=== PATIENT | male | born 1985 | race Caucasian/White ===

== ENCOUNTER 2023-08-02 16:38 | Emergency (ER) | payer SELFPAY ==
[2023-08-02 16:50] VITALS: BP 141/95; PULSE 92; RESP 14; TEMP 36.6; O2SAT 97; BMI 32.1
--- NOTE | 2023-08-02 17:35 | ED.WOUNDLAC ---
HPI - Wound/Laceration General Date Seen: 08/02/23 Chief Complaint: Laceration/Wound Stated Complaint: Laceration L leg Time Seen by Provider: 08/02/23 16:55 Source: patient Mode of arrival: ambulatory Limitations: no limitations History of Present Illness HPI narrative: Patient is a 38-year-old male presents emergency department for laceration to his left leg. He says he was at work when he was walking and cut the lawn a transmission. Sister transmission was 30. His last tetanus shot was 2013. Did has some pain while walking and the pain resolved when he sat down. States the pain is pretty minimal this time other than around the wound. Denies fevers, chills, numbness, weakness. No other injuries noted. Related Data Home Medications Medication Instructions Recorded Confirmed No Known Home Medications 08/02/23 08/02/23 Allergies Allergy/AdvReac Type Severity Reaction Status Date / Time No Known Drug Allergies Allergy Verified 08/02/23 16:50 Review of Systems Narrative: Negative unless stated in HPI PFSH PFSH Social History Smoking Status: Current every day smoker How often do you have a drink containing alcohol: monthly or less AUDIT-C Alcohol total score: 1 Non-prescribed substance use: marijuana (any form) Exam Narrative: Exam Narrative: Const: Well-nourished, Well-developed, in mild distress Eyes: PERRL, no conjunctival injection, and symmetrical lids HENT: Atraumatic external nose and ears. Moist mucous membranes. MSK:Extremities w/o deformity, Normal Active ROM Skin: Warm, Dry. 2 cm laceration lower left leg laterally Neuro: Normal Muscle tone, No focal neurological deficits. Psych: Awake, Alert, & Oriented x3. Appropriate mood and affect. Const: Vital Signs, click to edit/add: Vital Signs - 24 hr 08/02/23 16:50 Temperature 97.9 F Pulse Rate [Pulse Oximeter] 92 Respiratory Rate 14 Blood Pressure [Le ft Upper Arm] 141/95 H Pulse Oximetry 97 Oxygen Delivery Me thod Room Air Course Vital Signs Vital signs: Initial Vital Signs Temperature 97.9 F 08/02/23 16:50 Temperature Source Temporal Artery Scan 08/02/23 16:50 Pulse Rate 92 08/02/23 16:50 Pulse Rhythm Regular 08/02/23 16:50 Respiratory Rate 14 08/02/23 16:50 Blood Pressure 141/95 H 08/02/23 16:50 Blood Pressure Mean 110 H 08/02/23 16:50 Blood Pressure Position Sitting 08/02/23 16:50 Pulse Oximetry 97 08/02/23 16:50 Oxygen Delivery Method Room Air 08/02/23 16:50 Vital Signs Temperature 97.9 F 08/02/23 16:50 Pulse Rate 92 08/02/23 16:50 Respiratory Rate 14 08/02/23 16:50 Blood Pressure 141/95 H 08/02/23 16:50 Pulse Oximetry 97 08/02/23 16:50 Oxygen Delivery Method Room Air 08/02/23 16:50 Temperature 97.9 F 08/02/23 16:50 Pulse Rate 92 08/02/23 16:50 Respiratory Rate 14 08/02/23 16:50 Blood Pressure 141/95 H 08/02/23 16:50 Pulse Oximetry 97 08/02/23 16:50 Oxygen Delivery Method Room Air 08/02/23 16:50 MDM - Wound/Laceration MDM Narrative Medical decision making narrative: Patient is a 38-year-old male presenting for laceration to his left lower leg. His tetanus has been updated. Imaging is not suggestive this time he has full movement of the leg. I do not believe any muscles have been damaged. Eight sutures were placed. See procedure note. She is otherwise doing well in giving discharged home. He is agreeable this plan. Antibiotics are not necessary at this time Discharge Plan Discharge Clinical Impression: Laceration Patient Disposition: Home, Self-Care Condition: Stable Instructions: Laceration (DC) Additional Instructions: Follow-up with your primary care provider/urgent care/emergency department in the next 7 days to have the 8 sutures removed. For next 6 months, once sutures are removed, whenever you goes outside put a tab of sunscreen over the laceration site to improve scar appearance. Topical antibiotics are not necessary at this time. Patient can shower but do not submerge the laceration until sutures are removed Prescriptions: No Action No Known Home Medications Follow Up/Referrals: Provider,Not a Local [Primary Care Provider] - Stand Alone Forms: [employer] Info Instructions Procedures Laceration Left lower leg: Name of person performing procedure: Eric Mena Site: lower extremity Side (If applicable): left Size (cm): 2 Description: linear and clean Depth: simple, single layer Local Anesthetic: lidocaine 1% Amount of anesthesia used (mL): 6 Pre-repair: wound explored, irrigated extensively and deep structures intact Skin layer closed with: nylon Size (cm): 4-0 Number of sutures: 8 Technique: simple, interrupted
== END 2023-08-02 18:52 | disposition home or self-care (01) ==
PROVIDERS: Emergency Provider Student in an Organized Health Care Education/Training Program
DX: S81.812A Laceration without foreign body, left lower leg, initial encounter (principal); W26.9XXA Contact with unspecified sharp object(s), initial encounter
CPT/HCPCS: 12001; 90471; 90714; 99283

== ENCOUNTER 2024-11-09 14:56 | Emergency (ER) | payer OTHER, SELFPAY ==
[2024-11-09 15:00] VITALS: BP 156/80; PULSE 112; RESP 16; TEMP 36.2; O2SAT 94; BMI 30.8
[2024-11-09] MEDS: LIDOCAINE 1 % PF 30 ML INJECTION (15:25)
--- NOTE | 2024-11-09 15:36 | ED.WOUNDLAC ---
HPI - Wound/Laceration General Chief Complaint: Laceration/Wound Stated Complaint: Cut rt hand Time Seen by Provider: 11/09/24 15:04 History of Present Illness HPI narrative: This 39-year-old male comes in with an injury to his right hand. 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 The chain involved in this pinched his right hand causing a laceration. He has a laceration on the ulnar aspect of his right hand overlying the distal and lateral portion of his 5th metatarsal. His tetanus status is up-to-date. He does not report any other injury. Related Data Home Medications ?Medication ?Instructions ?Recorded ?Confirmed No Known Home Medications 08/02/23 08/02/23 Allergies Allergy/AdvReac Type Severity Reaction Status Date / Time No Known Drug Allergies Allergy Verified 08/02/23 16:50 Review of Systems Status of ROS: Reports: 10 or more systems reviewed and unremarkable except as noted in History and below Narrative: Constitutional: No fevers, no weight gain or loss. Eyes: No discharge. No vision changes. HENT: No congestion, no sore throat, no ear pain. Cardiovascular: No chest pain, no palpitations. Respiratory: No shortness of breath, no wheezes, no cough. Gastrointestinal: No abdominal pain, no vomiting, no diarrhea. Genitourinary: No dysuria, no hematuria. Musculoskeletal: Normal range of motion. Skin: No rashes, no pruritis. Neurological: No dizziness, weakness, sensory change, speech change. Endo/Heme/Allergies: No bruising or bleeding. No polydipsia. Pysch: no suicidality, no anxiety, no insomnia. All other systems reviewed and are negative. [facility] Social History Smoking Status: Current every day smoker How often do you have a drink containing alcohol: monthly or less AUDIT-C Alcohol total score: 1 Non-prescribed substance use: marijuana (any form) Exam Narrative: Exam Narrative: Constitutional: Well-developed, well-nourished, no acute distress. HEENT: Normocephalic, atraumatic. Neck: Normal range of motion. Nontender. Supple. Heart: Regular. No murmurs. Normal rate. Intact distal pulses. Lungs: Clear to auscultation. No chest discomfort. No wheezes, rhonchi, or rales. Abdomen: Normal bowel sounds. Nontender. No rebound tenderness. Genitalia: Deferred. Back: No midline tenderness. Normal range of motion. Extremities: Normal range of motion. 4 cm irregular laceration on the lateral aspect of the distal portion of the 5th metatarsal of the right hand. Tendon and nerve functions are intact. Skin: Intact. No rash. Warm. No erythema or pallor. Neurologic: No altered sensation. No weakness. Alert and oriented. Psychiatric: No suicidality. No anxiety or depression. No insomnia. Nursing notes and vitals signs are reviewed. Const: Vital Signs, click to edit/add: Vital Signs - 24 hr 11/09/24 15:00 Temperature 97.1 F L Pulse Rate [Pulse Oximeter] 112 H Respiratory Rate 16 Blood Pressure [Le ft Upper Arm] 156/80 H Pulse Oximetry 94 Course Vital Signs Vital signs: Initial Vital Signs Temperature 97.1 F L 11/09/24 15:00 Temperature Source Temporal Artery Scan 11/09/24 15:00 Pulse Rate 112 H 11/09/24 15:00 Respiratory Rate 16 11/09/24 15:00 Blood Pressure 156/80 H 11/09/24 15:00 Blood Pressure Mean 105 11/09/24 15:00 Blood Pressure Position Sitting 11/09/24 15:00 Pulse Oximetry 94 11/09/24 15:00 Vital Signs Temperature 97.1 F L 11/09/24 15:00 Pulse Rate 112 H 11/09/24 15:00 Respiratory Rate 16 11/09/24 15:00 Blood Pressure 156/80 H 11/09/24 15:00 Pulse Oximetry 94 11/09/24 15:00 Temperature 97.1 F L 11/09/24 15:00 Pulse Rate 112 H 11/09/24 15:00 Respiratory Rate 16 11/09/24 15:00 Blood Pressure 156/80 H 11/09/24 15:00 Pulse Oximetry 94 11/09/24 15:00 Medications Administered Medications: Generic Name Dose Route Start Last Admin Trade Name Freq PRN Reason Stop Dose Admin Lidocaine HCl 30 ml 11/09/24 15:13 11/09/24 15:25 Lidocaine 1 % Pf 30 Ml INJECTION 30 ml ONCE PRN Administration MDM - Wound/Laceration MDM Narrative Medical decision making narrative: This patient comes in with a laceration to his right hand as described above. His wounds were cleansed with normal saline. He received anesthesia with 1% lidocaine. I placed 8 sutures in interrupted fashion using 4.0 Ethilon suture. Instructions regarding wound care were given. Bacitracin and a dressing was applied to the wound. Discharge Plan Discharge Clinical Impression: Laceration Patient Disposition: Home, Self-Care Condition: Improved Additional Instructions: Keep wound clean and dry. Follow-up with clinic urgent care in 7-10 days for suture removal. Use [id number] medicines as needed and directed for pain relief. Return if worsening. Prescriptions: No Action No Known Home Medications Follow Up/Referrals: Provider,Not a Local [Primary Care Provider] - Stand Alone Forms: [employer] Info Instructions
== END 2024-11-09 15:54 | disposition home or self-care (01) ==
PROVIDERS: Emergency Provider Emergency Medicine Emergency Medical Services
DX: S61.411A Laceration without foreign body of right hand, initial encounter (principal); W23.0XXA Caught, crushed, jammed, or pinched between moving objects, initial encounter
CPT/HCPCS: 12002; 99283; 99284; J2003

== ENCOUNTER 2024-11-19 17:21 | Emergency (ER) | payer OTHER, SELFPAY ==
[2024-11-19 17:32] VITALS: PULSE 88; RESP 16; TEMP 37.1; O2SAT 98; BMI 30.8
--- NOTE | 2024-11-19 19:39 | ED.GENADULT ---
HPI - General Adult General Chief complaint: Unspecified Complaint, Adult Stated complaint: Need stitches removed Time Seen by Provider: 11/19/24 18:54 History of Present Illness HPI narrative: This 39-year-old male comes in for removal of sutures on his right hand. He injured his hand about 8 days ago and I was the 1 that saw him at that time to repair the wound on his hand. He has continued to work with his hands and states that he has been wearing gloves but there is some swelling and bruising in the area of his laceration. There is no drainage. Related Data Previous Rx's ?Medication ?Instructions ?Recorded cephalexin 500 mg capsule 500 mg PO TID 5 days #15 caps 11/19/24 Allergies Allergy/AdvReac Type Severity Reaction Status Date / Time No Known Drug Allergies Allergy Verified 11/19/24 17:34 Review of Systems Status of ROS: Reports: 10 or more systems reviewed and unremarkable except as noted in History and below Narrative: Constitutional: No fevers, no weight gain or loss. Eyes: No discharge. No vision changes. HENT: No congestion, no sore throat, no ear pain. Cardiovascular: No chest pain, no palpitations. Respiratory: No shortness of breath, no wheezes, no cough. Gastrointestinal: No abdominal pain, no vomiting, no diarrhea. Genitourinary: No dysuria, no hematuria. Musculoskeletal: Normal range of motion. Skin: No rashes, no pruritis. Neurological: No dizziness, weakness, sensory change, speech change. Endo/Heme/Allergies: No bruising or bleeding. No polydipsia. Pysch: no suicidality, no anxiety, no insomnia. All other systems reviewed and are negative. [facility] Social History Smoking Status: Current every day smoker How often do you have a drink containing alcohol: monthly or less AUDIT-C Alcohol total score: 1 Non-prescribed substance use: marijuana (any form) Exam Narrative: Exam Narrative: Constitutional: Well-developed, well-nourished, no acute distress. HEENT: Normocephalic, atraumatic. Neck: Normal range of motion. Nontender. Supple. Heart: Regular. No murmurs. Normal rate. Intact distal pulses. Lungs: Clear to auscultation. No chest discomfort. No wheezes, rhonchi, or rales. Abdomen: Normal bowel sounds. Nontender. No rebound tenderness. Genitalia: Deferred. Back: No midline tenderness. Normal range of motion. Extremities: Right hand has a laceration that is repaired with 8 sutures. There is some erythema but no report of pain or increased warmth. Skin: Intact. No rash. Warm. No erythema or pallor. Neurologic: No altered sensation. No weakness. Alert and oriented. Psychiatric: No suicidality. No anxiety or depression. No insomnia. Nursing notes and vitals signs are reviewed. Const: Vital Signs, click to edit/add: Vital Signs - 24 hr 11/19/24 17:32 Temperature 98.7 F Pulse Rate [Right Pulse Oximeter] 88 Respiratory Rate 16 Pulse Oximetry 98 Oxygen Delivery Me thod Room Air Course Vital Signs Vital signs: Initial Vital Signs Temperature 98.7 F 11/19/24 17:32 Temperature Source Temporal Artery Scan 11/19/24 17:32 Pulse Rate 88 11/19/24 17:32 Pulse Rhythm Regular 11/19/24 17:32 Pulse Strength 3+ Normal 11/19/24 17:32 Respiratory Rate 16 11/19/24 17:32 Pulse Oximetry 98 11/19/24 17:32 Oxygen Delivery Method Room Air 11/19/24 17:32 Vital Signs Temperature 98.7 F 11/19/24 17:32 Pulse Rate 88 11/19/24 17:32 Respiratory Rate 16 11/19/24 17:32 Pulse Oximetry 98 11/19/24 17:32 Oxygen Delivery Method Room Air 11/19/24 17:32 Temperature 98.7 F 11/19/24 17:32 Pulse Rate 88 11/19/24 17:32 Respiratory Rate 16 11/19/24 17:32 Pulse Oximetry 98 11/19/24 17:32 Oxygen Delivery Method Room Air 11/19/24 17:32 Medical Decision Making MDM Narrative Medical decision making narrative: This patient comes in for suture removal. I did remove the sutures and examined the wound. There is no obvious sign of infection but he does have some erythema. The wound edges are approximated. There is no drainage. He states that he has been working with dirt and shoveling but has been protecting his hand while doing so. The wound is repairing but does look like it has been under some extra a stress with the way he has been working. Out of abundance of caution I did prescribe a few days of Keflex. Discharge Plan Discharge Clinical Impression: Encounter for removal of sutures Patient Disposition: Home, Self-Care Condition: Stable Additional Instructions: Reduce the use of your right hand to allow for proper wound healing. Keep wound covered. Take medication as directed. Return if worsening. Prescriptions: New cephalexin 500 mg capsule 500 mg PO TID 5 Days Qty: 15 0RF Follow Up/Referrals: Provider,Not a Local [Primary Care Provider] - Stand Alone Forms: [employer] Info Instructions
[2024-11-19 19:47] VITALS: BP 135/84; PULSE 80; RESP 16; TEMP 37.1; O2SAT 98
[2024-11-19 19:49] VITALS: BP 135/84; PULSE 80; RESP 16; TEMP 37.1
== END 2024-11-19 19:58 | disposition home or self-care (01) ==
LOC: ED 19:53
PROVIDERS: Emergency Provider Emergency Medicine Emergency Medical Services
DX: Z48.02 Encounter for removal of sutures (principal)
CPT/HCPCS: 99284

== ENCOUNTER 2025-07-15 17:21 | Emergency (ER) | payer OTHER, SELFPAY ==
[2025-07-15 18:09] VITALS: BP 155/103; PULSE 80; RESP 18; TEMP 36.6; O2SAT 98; BMI 31.5
--- NOTE | 2025-07-15 19:26 | ED.GENADULT ---
HPI - General Adult General Time Seen by Provider: 19:27 Date Seen: 07/15/25 Chief complaint: Ear/Nose/Throat Problem Stated complaint: cant hear in left ear Time Seen by Provider: 07/15/25 19:12 Source: patient and RN notes reviewed Mode of arrival: ambulatory Limitations: no limitations History of Present Illness HPI narrative: This patient is a 40-year-old male coming in with left ear pain. He lost hearing in both of his ears today. He had been sick with cough and cold symptoms prior but was improving. His cough is really gotten better over the last 3-4 days. He does not remember he has ever had an ear infection. His left ear is painful now. His significant other is being seen, she is sick with fevers, sinus symptoms and coughing. She was not getting better like he was. He does smoke. Related Data Allergies Allergy/AdvReac Type Severity Reaction Status Date / Time No Known Drug Allergies Allergy Verified 11/19/24 17:34 Review of Systems Narrative: As per HPI. PFSH PFSH Social History Smoking Status: Current every day smoker Second hand tobacco smoke exposure: No How often do you have a drink containing alcohol: monthly or less AUDIT-C Alcohol total score: 1 Non-prescribed substance use: marijuana (any form) Exam Const: Vital Signs, click to edit/add: Vital Signs - 24 hr 07/15/25 18:09 Temperature 97.9 F Pulse Rate [Pulse Oximeter] 80 Respiratory Rate 18 Blood Pressure [Ri ght Upper Arm] 155/103 H Pulse Oximetry 98 Oxygen Delivery Me thod Room Air This 40-year-old male is alert, interactive, no apparent distress. Sitting up in the chair, very pleasant. Sclera clear, face atraumatic. Left tympanic membrane is erythematous bulging, mucoid purulent fluid behind it. Right TM and canal actually looked normal, maybe some fluid behind it but certainly not significantly abnormal like his left. Speech is normal. Neck supple, no adenopathy. Lungs are clear, good air entry, no wheezing or crackles, no tachypnea. CV regular rate and rhythm. Documenting provider has reviewed patient's vital signs: yes Course Course ED Course: Reviewed with patient that he definitely has a left ear infection. He would prefer antibiotics here from [facility]. Vital Signs Vital signs: Initial Vital Signs Temperature 97.9 F 07/15/25 18:09 Temperature Source Temporal Artery Scan 07/15/25 18:09 Pulse Rate 80 07/15/25 18:09 Respiratory Rate 18 07/15/25 18:09 Blood Pressure 155/103 H 07/15/25 18:09 Blood Pressure Mean 120 H 07/15/25 18:09 Blood Pressure Position Sitting 07/15/25 18:09 Pulse Oximetry 98 07/15/25 18:09 Oxygen Delivery Method Room Air 07/15/25 18:09 Vital Signs Temperature 97.9 F 07/15/25 18:09 Pulse Rate 80 07/15/25 18:09 Respiratory Rate 18 07/15/25 18:09 Blood Pressure 155/103 H 07/15/25 18:09 Pulse Oximetry 98 07/15/25 18:09 Oxygen Delivery Method Room Air 07/15/25 18:09 Temperature 97.9 F 07/15/25 18:09 Pulse Rate 80 07/15/25 18:09 Respiratory Rate 18 07/15/25 18:09 Blood Pressure 155/103 H 07/15/25 18:09 Pulse Oximetry 98 07/15/25 18:09 Oxygen Delivery Method Room Air 07/15/25 18:09 Discharge Plan Discharge Clinical Impression: Otitis media Qualifiers: Otitis media type: suppurative Chronicity: acute Laterality: left Recurrence: non-recurrent Spontaneous tympanic membrane rupture: without spontaneous rupture Qualified Code(s): H66.002 - Acute suppurative otitis media without spontaneous rupture of ear drum, left ear Patient Disposition: Home, Self-Care Condition: Stable Instructions: Ear Infection (ED) Additional Instructions: Start amoxicillin 500 mg, 1 pill orally 3 times a day for 10 days. Can use Tylenol and ibuprofen if needed for discomfort, follow bottle directions for dosing. If you are not improving over the next week, feel you are worsening at any point or have further concerns, please seek re-evaluation. Activity Level: Activity as Tolerated Follow Up/Referrals: Provider,Not a Local [Primary Care Provider, Family Practice] Stand Alone Forms: [employer] Info Instructions
== END 2025-07-15 20:13 | disposition home or self-care (01) ==
PROVIDERS: Emergency Provider Family Medicine
DX: H66.002 Acute suppurative otitis media without spontaneous rupture of ear drum, left ear (principal)
CPT/HCPCS: 99283